=== PATIENT | female | born 1960 | race Caucasian/White ===

== ENCOUNTER 2016-11-07 14:00 | Emergency (ER) | payer OTHER ==
[~2016-11-07] VITALS: Ht 162.6 cm; Wt 61.5 kg
[2016-11-07 16:08] VITALS: BP 147/77
== END 2016-11-07 16:11 | disposition home or self-care (01) ==
LOC: ED 14:28
DX: S16.1XXA Strain of muscle, fascia and tendon at neck level, initial encounter (principal); M79.1 Myalgia; V43.52XA Car driver injured in collision with other type car in traffic accident, initial encounter; Y93.89 Activity, other specified; Y92.89 Other specified places as the place of occurrence of the external cause; Y99.8 Other external cause status
CPT/HCPCS: 70450; 72125; 99284